=== PATIENT | female | born 1995 | race African-American/Black ===

== ENCOUNTER 2024-01-09 05:03 | Emergency (ER) | payer BC ==
[~2024-01-09] VITALS: Ht 160 cm; Wt 93.0 kg
[2024-01-09 05:27] VITALS: O2SAT 99
[2024-01-09 10:30] VITALS: BP 127/75; PULSE 85; RESP 17; TEMP 98
[2024-01-09] MEDS ORDERED: CEPH500C2 MT (10:46)
== END 2024-01-09 11:10 | disposition home or self-care (01) ==
LOC: ER 05:03
DX: O99.713 Diseases of the skin and subcutaneous tissue complicating pregnancy, third trimester (principal); E03.9 Hypothyroidism, unspecified; Z3A.31 31 weeks gestation of pregnancy
CPT/HCPCS: 99284; Z7610 ×3